=== PATIENT | female | born 1995 | race Caucasian/White ===

== ENCOUNTER 2019-10-10 23:29 | Emergency (ER) | payer MEDICAID ==
[~2019-10-10] VITALS: Ht 162.6 cm; Wt 64.9 kg
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
[2019-10-11] MEDS ORDERED: ACETAMINOPHEN ES 500 MG TABLET ONE (00:50)
[2019-10-11] MEDS ORDERED: ACETAMINOPHEN ES 500 MG TABLET PO ONE (01:00)
--- NOTE | 2019-10-11 01:25 | NUR ---
Patient discharged to home in stable condition. Written and verbal after care instructions given. Patient verbalizes understanding of instructions. Stressed follow up or return to ER for worsening s/s.
[2019-10-11 01:39] VITALS: BP 123/80
== END 2019-10-11 01:25 | disposition home or self-care (01) ==
LOC: ER 23:38
DX: F41.0 Panic disorder [episodic paroxysmal anxiety] (principal); F41.9 Anxiety disorder, unspecified; Z33.1 Pregnant state, incidental
CPT/HCPCS: A4663; A9150